=== PATIENT | female | born 1970 | race African-American/Black ===

== ENCOUNTER 2021-03-26 16:21 | Emergency (ER) | payer OTHER, SELFPAY ==
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
[2021-03-26 16:40] VITALS: BP 119/76; PULSE 72; RESP 16; TEMP 36.9; O2SAT 100
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
== END 2021-03-26 18:39 | disposition home or self-care (01) ==
PROVIDERS: Emergency Provider Nurse Practitioner
DX: S39.012A Strain of muscle, fascia and tendon of lower back, initial encounter (principal); S16.1XXA Strain of muscle, fascia and tendon at neck level, initial encounter; V49.9XXA Car occupant (driver) (passenger) injured in unspecified traffic accident, initial encounter
CPT/HCPCS: 72050; 72072; 72100; 99213; G0463

== ENCOUNTER 2022-06-06 01:23 | Day surgery (SDC) | payer OTHER, SELFPAY ==
[2022-05-27 11:56] VITALS: BMI 32.9
--- NOTE | 2022-06-05 16:38 | PM.HPGS ---
History of Present Illness History of Present Illness Consent: Risks, benefits, and alternatives have been discussed and questions answered. Patient agrees to proceed with procedure. Chief complaint: neoplasm screening Narrative: Kvng Wade is a 51 year old female Referred for colon cancer screening. her maternal aunt and maternal grandmother had colon cancer. There is also strong family history of uterine cancer in her family. Review of Systems Review of Systems: All systems reviewed & are unremarkable except as noted in HPI and below PMFSH Past Medical History Medical History No acute medical problems Family History Family History Sibling Family history of human immunodeficiency virus infection Grandparent Diabetes mellitus Carcinoma of colon Social History Social History Smoking status: Never smoker Alcohol intake: never Substance use: never Substance use type: does not use Living arrangements: with family Gender identity (if verbalized by the patient): Female Spiritual care concerns: No Meds Home Medications and Allergies Home Medications Medication Instructions Recorded Confirmed Type ergocalciferol (vitamin D2) 1,250 50,000 unit PO MONTHLY 05/27/22 05/27/22 History mcg (50,000 unit) capsule ibuprofen 800 mg tablet 800 mg PO TID PRN Pain 05/27/22 05/27/22 History Allergies Allergy/AdvReac Type Severity Reaction Status Date / Time nkda Allergy Unknown Uncoded 02/15/03 13:24 Exam Resp: Auscultation: clear to auscultation bilaterally Cardio: Rate: regular rate Rhythm: regular rhythm GI: GI Palp: Yes Soft to palpation and No Tenderness to palpation present (GI) Assessment and Plan Assessment and plan (1) Colon cancer screening: Code(s): Z12.11 - Encounter for screening for malignant neoplasm of colon Status: Acute Assessment and Plan: Colonoscopy with possible biopsy or polypectomy or cautery or injection of substances.
[2022-06-06 12:17] VITALS: BP 129/90; PULSE 84; RESP 18; TEMP 36.5; O2SAT 100
[2022-06-06] MEDS: LACTATED RINGERS 1,000 ML 150 ML IV CONT (12:35)
--- NOTE | 2022-06-06 12:51 | P.PNAN_ITS ---
Anes - Initial Pre Proc Eval Procedure: Operation Date: 06/06/22 13:45 Proposed Procedures p Screening Colonoscopy - Tino Maradiaga MD Date/Time: 06/06/22 12:51 Surgeon: Tino Maradiaga MD Pre Op Diagnosis: neoplasm screening Patient Data Age: 51 Gender: F Height: 1.63 m Weight: 86.7 kg Last Vital Signs Temp 97.7 F 06/06/22 12:17 Pulse 84 06/06/22 12:17 Resp 18 06/06/22 12:17 BP 129/90 06/06/22 12:17 Pulse Ox 100 06/06/22 12:17 O2 Del Method Room Air 06/06/22 12:17 Allergies Allergy/AdvReac Type Severity Reaction Status Date / Time nkda Allergy Unknown Uncoded 02/15/03 13:24 Home Medications Medication Instructions Recorded Confirmed Type ergocalciferol (vitamin D2) 1,250 50,000 unit PO MONTHLY 05/27/22 05/27/22 History mcg (50,000 unit) capsule ibuprofen 800 mg tablet 800 mg PO TID PRN Pain 05/27/22 05/27/22 History Patient hx anesthesia problems: none Family hx anesthesia problems: none Results Review: All pre-operative results and documents have been reviewed as part of the pre- operative evaluation. [facility] Past Medical History Medical History No acute medical problems Family History Family History Sibling Family history of human immunodeficiency virus infection Grandparent Diabetes mellitus Carcinoma of colon Social History Social History Smoking status: Never smoker Alcohol intake: never Substance use: never Substance use type: does not use Living arrangements: with family Gender identity (if verbalized by the patient): Female Spiritual care concerns: No Anes - Eval Final PreProcedure Day of Procedure 06/06/22 12:51 Patient weight: obese Heart: regular rate and rhythm Lungs: clear to auscultation Airway: Mallampati scale class II Neurological: alert and oriented Last oral intake: >/= 8 hours ASA classification: II Emergent: no Anesthetic plan: proceed Anesthesia type and monitoring: general GIVS and standard monitoring Results Review: All pre-operative results and documents have been reviewed as part of the pre- operative evaluation. Informed Consent: The patient's anesthetic plan and its attendant risks and benefits were discussed with the patient/family/POA. Questions were solicited and answers provided to the satisfaction of the patient/family/POA.
[2022-06-06] MEDS: SIMETHICONE ORAL SUSPENSION 20 MG/0.3 ML 30 ML BOTTLE 0.6 ML IRRIGATION (13:35)
[2022-06-06 13:43] VITALS: BP 109/69; PULSE 92; RESP 23; O2SAT 100
[2022-06-06 13:53] VITALS: BP 118/73; PULSE 85; RESP 17; O2SAT 100
[2022-06-06 14:03] VITALS: BP 125/86; PULSE 79; RESP 14; O2SAT 100
== END 2022-06-06 14:14 | disposition home or self-care (01) ==
PROVIDERS: PCP Family Medicine; Visit Provider Internal Medicine Gastroenterology
PROC: 0DJD8ZZ Inspection of Lower Intestinal Tract, Via Natural or Artificial Opening Endoscopic (ICD-10-PCS; CPT 45378; principal; 2022-06-06 13:45)
DX: Z12.11 Encounter for screening for malignant neoplasm of colon (principal); Z80.0 Family history of malignant neoplasm of digestive organs; E66.9 Obesity, unspecified; Z68.32 Body mass index [BMI] 32.0-32.9, adult
CPT/HCPCS: 45378; J2704; J7120

== ENCOUNTER 2023-01-07 14:07 | Outpatient (CLI) | payer OTHER, SELFPAY ==
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
== END 2023-01-07 14:08 | disposition home or self-care (01) ==
PROVIDERS: PCP Family Medicine; Visit Provider Family Medicine
DX: R22.42 Localized swelling, mass and lump, left lower limb (principal)
CPT/HCPCS: 93971